=== PATIENT | male | born 1980 | race Hispanic/Latino ===

== ENCOUNTER 2019-05-01 12:59 | Emergency (ER) | payer OTHER ==
[2019-05-01] MEDS ORDERED: KETOROLAC TROMETHAMINE 60 MG/2 ML VIAL ONE (14:15)
== END 2019-05-01 14:28 | disposition home or self-care (01) ==
LOC: EDH 12:59
DX: M72.2 Plantar fascial fibromatosis (principal); J45.909 Unspecified asthma, uncomplicated
CPT/HCPCS: 73630; 96372; 99284; J1885

== ENCOUNTER 2024-04-12 11:01 | Emergency (ER) | payer OTHER ==
[~2024-04-12] VITALS: Ht 175.3 cm; Wt 122.5 kg
--- NOTE | 2024-04-12 11:06 | ERN ---
ED Note History of Present Illness Stated Complaint: DIZZINESS W/CHEST DISCOMFORT Chief Complaint: Dizzy/Light Headed Time Seen by MD: 11:03 Dictation: PATIENT IS A 43-YEAR-OLD MALE WHO WAS DOING CRYSTAL METH AND COCAINE LAST NIGHT AND DRINKING ALCOHOL WHEN HE STATES THIS MORNING HE WOKE UP WITH CHEST DISCOMFORT DIZZINESS AND GENERALIZED BODY WEAKNESS. NO SOB NO NAUSEA VOMITING NO ARM PAIN NO JAW PAIN NO BACK PAIN. NO PRIMARY CARE DOCTOR PATIENT WAS STRONGLY ADVISED THAT DEALERS ARE NOW MIXING COCAINE WITH FENTANYL AND IT IS CAUSING INSTANT , HEART ATTACKS AND STROKES. I ADVISED HIM TO STOP USING ILLEGAL DRUGS AND OF THE ADVERSE CONSEQUENCES. Allergies: Coded Allergies: No Known Drug Allergies (Unverified Allergy, Unknown, 04/12/24) Home Meds Active Scripts Metoprolol Tartrate (Metoprolol Tartrate) 50 Mg Tablet, 50 MG PO DAILY for 30 Days, #30 TAB Prov:JOVANNA THOMPSON SENIOR ASSISTANT MANAGER 04/12/24 Past Medical History Social History: Drugs, ETOH RN Note Reviewed/Agreed w/PFSH: Yes Review of System Dictation CONSTITUTIONAL: NEGATIVE EXCEPT FOR HPI HEAD/FACE: NEGATIVE EXCEPT FOR HPI EENT: NEGATIVE EXCEPT FOR HPI RESPIRATORY: NEGATIVE EXCEPT FOR HPI CHEST PAIN GASTROINTESTINAL/ABDOMINAL: NEGATIVE EXCEPT FOR HPI GENITOURINARY: NEGATIVE EXCEPT FOR HPI MUSCULOSKELETAL: NEGATIVE EXCEPT FOR HPI INTEGUMENTARY: NEGATIVE EXCEPT FOR HPI NEUROLOGICAL/PSYCH: NEGATIVE EXCEPT FOR HPI DIZZINESS HEMATOLOGIC/LYMPHATIC: NEGATIVE EXCEPT FOR HPI ALL SYSTEMS NEGATIVE, EXCEPT NOTED ABOVE. 13 POINT REVIEW OF SYSTEMS ASSESSED AND ALL NEGATIVE EXCEPT FOR ABOVE. Initial Vital Sign VS Vital Signs Date Time Temp Pulse Resp B/P (MAP) Pulse Ox O2 Delivery O2 Flow Rate FiO2 04/12/24 11:03 127 21 108/49 99 Nasal Cannula 2.0 04/12/24 11:21 98.4 28 Physical Exam Dictation VITAL SIGNS REVIEWED GENERAL APPEARANCE: ALERT, ORIENTED X 3, MILD ACUTE DISTRESS, WELL DEVELOPED, NOURISHED. HEAD AND FACE: NON-TRAUMATIC. EYES: PERRL, PINK CONJUNCTIVAS, EYELID NO TRAUMA, ANTERIOR CHAMBER WITH ARCUS SENILIS. EARS: PINNAS INTACT AND NO SIGNS OF TRAUMA OR ERYTHEMA EAR CANALS CLEAR AND NO DISCHARGE TM NO ERYTHEMA NOSE: NO DISCHARGE, NO BLEEDING. OROPHARYNX: MOUTH NORMAL, TONGUE PINK, PHARYNX CLEAR,NO ERYTHEMA, TONSILS NO EXUDATES, NO ABSCESSES NOTED, MUCOUS MEMBRANE MOIST NECK: SUPPLE, NON-TENDER, NO THYROMEGALY, NO MASSES, NO JVD, NO BRUITS BREAST:DEFERRED CHEST:NO TENDERNESS, NO CREPITUS, NO PARADOXICAL MOVEMENT, NO RETRACTIONS LUNGS:CLEAR, WELL-VENTILATED, SYMMETRIC, NO RALES, NO WHEEZING, NO RHONCHI, NO STRIDOR, GOOD BREATH SOUNDS BILATERALLY HEART: REGULAR RATE, REGULAR RHYTHM, NO MURMUR, NO GALLOPS VASCULAR: NO PERIPHERAL EDEMA, ABDOMEN: SOFT, POSITIVE BOWEL SOUNDS, NONDISTENDED, NO GUARDING, NONTENDER, NO REBOUND, NO MASSES NO HEPATOMEGALY, NO SPLENOMEGALY, NO CAMPA'S SIGN, NO HERNIAS. RECTAL: DEFERRED GENITAL: DEFERRED NEUROLOGICAL: NORMAL SPEECH, MOTOR FUNCTION INTACT, SENSORY FUNCTION INTACT MUSCULOSKELETAL: NECK NONTENDER, FULL RANGE OF MOTION, BACK NONTENDER, FULL RANGE OF MOTION, EXTREMITIES: NONTENDER, FULL RANGE OF MOTION SKIN: COLOR PINK, DRY, NO TURGOR, NO RASH, NO LACERATIONS, NO ABRASIONS, NO CONTUSIONS. LYMPHATIC: DEFERRED Results (Laboratory/Radiology) Laboratory/Radiology Laboratory Tests Test 04/12/24 11:17 White Blood Count 11.7 K/uL (4.8-10.8) H Red Blood Count 4.77 MIL/uL (4.50-6.20) Hemoglobin 14.9 g/dL (14.0-18.0) Hematocrit 42.4 % (42-54) Mean Corpuscular Volume 88.9 fL (79-99) Mean Corpuscular Hemoglobin 31.2 pg (27.0-33.0) Mean Corpuscular Hemoglobin Concent 35.1 g/dL (32.0-36.0) Red Cell Distribution Width 12.2 % (11.0-15.5) Platelet Count 322 K/uL (130-400) Mean Platelet Volume 9.3 fL (7.5-10.5) Immature Granulocyte % (Auto) 0.9 % (0-1) Neutrophils (%) (Auto) 81.0 % (40.0-77.0) H Lymphocytes (%) (Auto) 12.5 % (21.0-51.0) L Monocytes (%) (Auto) 5.4 % (3.0-13.0) Eosinophils (%) (Auto) 0.0 % (0.0-8.0) Basophils (%) (Auto) 0.2 % (0.0-5.0) Neutrophils # (Auto) 9.4 K/uL (1.8-7.7) H Lymphocytes # (Auto) 1.5 K/uL (1.0-4.8) Monocytes # (Auto) 0.6 K/uL (0.1-1.0) Eosinophils # (Auto) 0.00 K/uL (0.00-0.70) Basophils # (Auto) 0.02 K/uL (0.00-0.20) Absolute Immature Granulocyte (auto 0.10 K/uL (0-1) Nucleated Red Blood Cells 0.0 % (0.0-0.19) Sodium Level 139 mmol/L (136-145) Potassium Level 4.7 mmol/L (3.5-5.1) Chloride Level 100 mmol/L (101-111) L Carbon Dioxide Level 25 mmol/L (21-32) Blood Urea Nitrogen 11 mg/dL (7-18) Creatinine 0.9 mg/dL (0.5-1.3) Glomerular Filtration Rate Calc 110 mL/min (>90) Random Glucose 146 mg/dL (70-105) H Total Calcium 10.7 mg/dL (8.5-10.1) H Troponin I High Sensitivity 12 ng/L (4-75) Labs Reviewed?: Yes EKG Comment: EKG SINUS TACHYCARDIA/HEART RATE 129/EARLY REPOLARIZATION SEEN IN LEADS V1 V2 ED Course ED Course Orders Procedure Category Date Status Time Cbc With Differential LAB 04/12/24 Complete 11:04 Troponin I High LAB 04/12/24 Complete Sensitivity 11:04 12 Lead Ekg Tracing- EKG 04/12/24 Complete Technical 11:04 Basic Metabolic Panel LAB 04/12/24 Complete 11:04 Ketorolac PHA 04/12/24 Complete Tromethamine 30mg/Ml 12:00 Metoprolol Tartrate PHA 04/12/24 Complete (Lopressor) 12:00 Current Medications Medications (Trade) Dose Ordered Sig/Jay Jay Route PRN Reason Start Time Stop Time Status Last Admin Dose Admin Ketorolac Tromethamine (toRADol) 30 mg ONCE ONCE IVP 04/12/24 12:00 04/12/24 12:01 DC 04/12/24 11:51 Metoprolol Tartrate (loprESSOR) 5 mg ONCE ONCE IV 04/12/24 12:00 04/12/24 12:01 DC 04/12/24 12:21 Vital Signs Date Time Temp Pulse Resp B/P (MAP) Pulse Ox O2 Delivery O2 Flow Rate FiO2 04/12/24 12:29 98.4 98 18 160/81 100 Nasal Cannula* 2.0 N/A 04/12/24 12:21 132 181/90 04/12/24 11:21 98.4 131 18 167/91 100 Nasal Cannula* 2 28 04/12/24 11:03 127 21 108/49 99 Nasal Cannula 2.0 2 40, PATIENT REMAINS HYPERTENSIVE DESPITE METOPROLOL, HEART RATE DOWN TO 98 WE WILL BE DISCHARGED HOME WITH METOPROLOL 50 MG P.O. Q.DAY GIVEN MUCH INFORMATION REGARDING DRUG USE AND COCAINE BEING CUT WITH FENTANYL AND CAUSING INSTANT HEART ATTACKS OR STROKES. IN ADDITION HE IS AWARE HE HAS HYPERGLYCEMIA AND PROBABLE EARLY TYPE 2 DIABETES AND HYPERTENSION AND NEEDS TO SEE A PRIMARY CARE DOCTOR. LIST OF LOCAL HEART Score Response (Comments) Value EKG: Repolarization changes 1 Age: < 45yrs (0) 0 Risk Factors: No known risk factors (0) 0 Initial Troponin: Normal limit (0) 0 Total 1 Medical Decision Making MDM MDM: DIFFERENTIAL DIAGNOSIS: DRUG ABUSE/COCAINE ABUSE/ACS/AMI/ELECTROLYTE IMBALANCE/DEHYDRATION/ANXIETY RATIONALE: TESTS CONSIDERED AND ORDERED SECONDARY TO SHARED DECISION MAKING INCLUDE: EKG/LABS PREVIOUS OUTSIDE RECORDS REVIEWED: OLD ER VISITS. REVIEWED RISK OF COMPLICATION AND/OR MORBIDITY OR MORTALITY OF PATIENT MANAGEMENT: NONE MEDICATIONS-PER MEDICATION RECONCILIATION NEED FOR HOSPITALIZATION: PATIENT DOES NOT MEET CRITERIA FOR HOSPITALIZATION. NO NEED FOR EMERGENCY MAJOR/MINOR SURGERY: NO THERE ARE NO SOCIAL CONCERNS WITH THIS PATIENT. PATIENT IS A POLYDRUG ABUSER INCLUDING COCAINE PRESCRIPTION DRUG MANAGEMENT METOPROLOL 50 PRESCRIPTIONS WILL INCLUDE SYMPTOMATIC CARE PATIENT'S PRIOR EXTERNAL MEDICAL RECORDS FROM OTHER ER VISITS WERE REVIEWED BY ME INDICATED. PRIOR TESTING AND RESULTS FROM PREVIOUS VISITS WERE REVIEWED. PRIOR TESTS WERE TAKEN INTO ACCOUNT WITH MEDICAL DECISION MAKING AND RESOURCE UTILIZATION, INDEPENDENT HISTORIAN/HISTORIANS WERE USED TO OBTAIN COMPLETE MEDICAL HISTORY. I INDEPENDENTLY INTERPRETED THE TEST THAT WERE PERFORMED, RESULTS WERE REVIEWED BY ME AND CONSIDERED FINDINGS ON RADIOLOGY IF ORDERED. MEDICAL MANAGEMENT AND EXAMINATION INTERPRETATION DISCUSSIONS WERE HAD BY ME WITH OTHER QUALIFIED HEALTHCARE PROFESSIONALS INDICATED FOR THE PATIENT'S CARE. DX & DISP Disposition: Discharge Departure Impression: Primary Impression: Atypical chest pain Additional Impressions: Polydrug abuse, continuous, Benign hypertension, Hyperglycemia, Sinus tachycardia by electrocardiogram Condition: Stable Scripts Metoprolol Tartrate (Metoprolol Tartrate) 50 Mg Tablet 50 MG PO DAILY for 30 Days, #30 TAB Prov: JOVANNA THOMPSON NP 04/12/24 Additional Instructions: FOLLOW-UP WITH PRIMARY CARE PROVIDER IN 1 TO 2 DAYS. TAKE MEDICATIONS DIRECTED HERE IN THE EMERGENCY ROOM. OKAY TO CONTINUE HOME MEDICATIONS UNLESS OTHERWISE DISCUSSED DURING YOUR VISIT IN THE EMERGENCY ROOM TODAY. RETURN TO YOUR NEAREST EMERGENCY ROOM IF SYMPTOMS WORSEN OR IF THERE IS NO IMPROVEMENT. CALL 911 IF YOU NEED IMMEDIATE ASSISTANCE. TAKE TYLENOL OR MOTRIN [id number] NEEDED AND IF NO CONTRAINDICATIONS ARE PRESENT. INCREASE ORAL HYDRATION. A WOUND CULTURE OR URINE CULTURE WAS ORDERED HERE IN THE EMERGENCY ROOM DEPARTMENT PLEASE FOLLOW-UP WITH PRIMARY CARE PROVIDER AND ADVISE THEM TO GET REPEAT PORTS FROM OUR FACILITY. IF YOU HAD ANY SONG WRAP/SPLINTS THAT WERE APPLIED HERE, PLEASE DO NOT REMOVE THEM UNTIL YOU SEE YOUR PRIMARY CARE OR SPECIALTY. STOP DRUG ABUSE SPECIFICALLY COCAINE OR RISK INCIDENT HEART ATTACK, STROKE, INSTANT . INCREASE YOUR WATER INTAKE., TAKE METOPROLOL DAILY DIRECTED FOR YOUR BLOOD PRESSURE. FOLLOW UP WITH ONE OF THE DOCTORS ON THE LIST PROVIDED YOU IN THE NEXT 1-2 DAYS FOR MANAGEMENT OF YOUR EARLY DIABETES AND BLOOD PRESSURE Referrals: SELF,REFERRAL (PCP) Time of Disposition: 12:45 I have reviewed the case, and I agree with, Diagnosis and Plan I performed this substantive portion of this visit. I have reviewed and personally made and approve the management plan that is documented in the note by myself or the RICHARD. I acknowledge full responsibility for the patient's management plan. JOVANNA THOMPSON NP Apr 12, 2024 11:06 CHRISTIAN CORNELIUS MD Apr 13, 2024 13:40
[2024-04-12 11:25] LABS: BASOPHILS # (AUTO) 0.02 K/uL (0.00-0.20); BASOPHILS % (AUTO) 0.2 % (0.0-5.0); HEMATOCRIT 42.4 % (42-54); LYMPHOCYTES # (AUTO) 1.5 K/uL (1.0-4.8); LYMPHOCYTES % (AUTO) 12.5 % (21.0-51.0); MEAN CORPUSCULAR HEMOGLOBIN 31.2 pg (27.0-33.0); MEAN CORPUSCULAR HGB CONC 35.1 g/dL (32.0-36.0); MEAN CORPUSCULAR VOLUME 88.9 fL (79-99); MONOCYTES # (AUTO) 0.6 K/uL (0.1-1.0); MONOCYTES % (AUTO) 5.4 % (3.0-13.0); NEUTROPHILS # (AUTO) 9.4 K/uL (1.8-7.7); PLATELET COUNT (AUTO) 322 K/uL (130-400); RED BLOOD CELL COUNT(AUTO) 4.77 MIL/uL (4.50-6.20); RED CELL DISTRIBUTION WIDTH 12.2 % (11.0-15.5); WHITE BLOOD COUNT (AUTO) 11.7 K/uL (4.8-10.8)
[2024-04-12 11:36] LABS: CREATININE 0.9 mg/dL (0.5-1.3); POTASSIUM 4.7 mmol/L (3.5-5.1)
[2024-04-12] MEDS: ketOROlac 30MG VIAL (30MG/ML) IVP ONE (11:51)
[2024-04-12] MEDS: metoPROLOL tartRATE 1 MG/ML 5ML VIAL IV ONE (12:21)
[2024-04-12 12:29] VITALS: BP 160/81; PULSE 98; RESP 18; TEMP 98.4; O2SAT 100
[2024-04-12] MEDS ORDERED: METO50TA18 PO (12:46)
--- NOTE | 2024-04-12 23:38 | EKG ---
[facility] Test Date: 2024-04-12 Test Time: 11:13:18 Pat Name: TANYA OCHOA Department: [facility] Room: Gender: M Production Posting Clerk: [id number] : 1980 Requested By: JOVANNA THOMPSON Order Number: [id number] Reading MD: Perla Dash Measurements Intervals [place] Rate: 129 P: 57 IN: 150 QRS: 34 QRSD: 83 T: 57 QT: 296 QTc: 435 Interpretive Statements Sinus tachycardia Posterior infarct, old No previous ECG available for comparison Electronically Signed On 04-16-2024 08:14:04 SEAM STAY STITCHER by Perla Dash Please click the below link to view image of tracing.
== END 2024-04-12 13:01 | disposition home or self-care (01) ==
LOC: EDH 11:01
DX: R07.89 Other chest pain (principal); I10 Essential (primary) hypertension; R73.9 Hyperglycemia, unspecified; F19.10 Other psychoactive substance abuse, uncomplicated; R00.0 Tachycardia, unspecified; Z79.899 Other long term (current) drug therapy
CPT/HCPCS: 99284; 96374; 96375; 84484; 80048; 85025; 36415; 93005; J3490; J1885

== ENCOUNTER 2024-05-30 15:40 | Emergency (ER) | payer OTHER ==
[~2024-05-30] VITALS: Ht 175.3 cm; Wt 110.2 kg
[~2024-05-30 15:40] MED LIST: METO50TA18 PO
[2024-05-30 16:09] LABS: BASOPHILS # (AUTO) 0.02 K/uL (0.00-0.20); BASOPHILS % (AUTO) 0.3 % (0.0-5.0); EOSINOPHILS # (AUTO) 0.12 K/uL (0.00-0.70); EOSINOPHILS % (AUTO) 1.7 % (0.0-8.0); HEMATOCRIT 45.1 % (42-54); IMMATURE GRANULOCYTE ABSOLUTE 0.03 K/uL (0-1); LYMPHOCYTES # (AUTO) 1.6 K/uL (1.0-4.8); LYMPHOCYTES % (AUTO) 22.1 % (21.0-51.0); MEAN CORPUSCULAR HEMOGLOBIN 30.9 pg (27.0-33.0); MEAN CORPUSCULAR HGB CONC 34.4 g/dL (32.0-36.0); MONOCYTES # (AUTO) 0.6 K/uL (0.1-1.0); MONOCYTES % (AUTO) 8.7 % (3.0-13.0); NEUTROPHILS # (AUTO) 4.8 K/uL (1.8-7.7); NEUTROPHILS % (AUTO) 66.8 % (40.0-77.0); PLATELET COUNT (AUTO) 275 K/uL (130-400); RED BLOOD CELL COUNT(AUTO) 5.01 MIL/uL (4.50-6.20); RED CELL DISTRIBUTION WIDTH 11.8 % (11.0-15.5); WHITE BLOOD COUNT (AUTO) 7.1 K/uL (4.8-10.8)
[2024-05-30 16:17] LABS: CREATININE 0.9 mg/dL (0.5-1.3); POTASSIUM 3.6 mmol/L (3.5-5.1)
[2024-05-30 16:19] LABS: INR 0.97 (0.85-1.15); PROTHROMBIN TIME 10.3 SEC (9.6-11.6)
[2024-05-30 16:20] LABS: PARTIAL THROMBOPLASTIN TIME 25.4 SEC (26.3-35.5)
--- NOTE | 2024-05-30 16:22 | HMCIMG ---
CHEST 1VW CLINICAL HISTORY: hypertension COMPARISON: None TECHNIQUE: Single view of the chest was obtained. FINDINGS: Lungs are clear. The cardiac size and mediastinum are unremarkable. The bony structures are within normal limits. IMPRESSION: No acute cardiopulmonary process identified.
[2024-05-30 16:40] LABS: B-TYPE NATRIURETIC PEPTIDE 18 pg/mL (0-100)
[2024-05-30 16:49] LABS: APPEARANCE,URINE CLEAR (CLEAR); BILIRUBIN,URINE NEGATIVE (NEGATIVE); COLOR,URINE COLORLESS (YELLOW); GLUCOSE, URINE (UA) NEGATIVE (NEGATIVE); KETONES,URINE 20 mg/dL (NEGATIVE); LEUKOCYTE ESTERASE ,URINE NEGATIVE Leu/uL (NEGATIVE); NITRATE,URINE NEGATIVE (NEGATIVE); OCCULT BLOOD,URINE NEGATIVE (NEGATIVE); PROTEIN,URINE NEGATIVE (NEGATIVE); UROBILINOGEN,URINE 0.2 mg/dL (0.2-1.0)
[2024-05-30 16:54] LABS: ADD UA MICROSCOPIC YES; AMPHET/METH SCREEN,URINE NEGATIVE (NEGATIVE); BARBITURATE SCREEN, URINE NEGATIVE (NEGATIVE); BENZODIAZEPINES SCREEN,URINE NEGATIVE (NEGATIVE); CANNABINOID SCREEN,URINE NEGATIVE (NEGATIVE); COCAINE SCREEN,URINE NEGATIVE (NEGATIVE); OPIATE SCREEN,URINE NEGATIVE (NEGATIVE); PHENCYCLIDINE SCREEN,URINE NEGATIVE (NEGATIVE)
--- NOTE | 2024-05-30 16:54 | EKG ---
[facility] Test Date: 2024-05-30 Test Time: 15:55:25 Pat Name: TANYA OCHOA Department: [facility] Room: Gender: M Speech Language Assistant: [id number] : 1980 Requested By: JENNIFER SANDY Order Number: [id number] Reading MD: James Dash Measurements Intervals [place] Rate: 73 P: 36 MO: 163 QRS: 30 QRSD: 89 T: 21 QT: 383 QTc: 422 Interpretive Statements Sinus rhythm Compared to ECG 04/12/2024 11:13:18 Sinus tachycardia no longer present Myocardial infarct finding no longer present Electronically Signed On 06-01-2024 16:03:24 SHORE WORKER by James Dash Please click the below link to view image of tracing.
[2024-05-30 16:56] LABS: RBC,URINE 0-1 /HPF (0-1); WBC,URINE 0-1 /HPF (0-1)
[2024-05-30] MEDS: cloNIDine HCL 0.1 MG TABLET PO STA (17:41)
[2024-05-30] MEDS: 0.9%NACL 1000ML 1,000 ML IV ONE (17:41)
--- NOTE | 2024-05-30 17:41 | ERN ---
General Chief Complaint: Fatigue Stated Complaint: WEAKNESS Time Seen by MD: 15:41 Source: patient History of Present Illness Initial Comments PATIENT IS A 43-YEAR-OLD GENTLEMAN COMING IN TO BE EVALUATED FOR ELEVATED BLOOD PRESSURE. PATIENT STATES HE HAS A HISTORY OF ELEVATED BLOOD PRESSURE AND ANXIETY. HE STATES THAT SOME TIME AGO HE DID COCAINE AND METHAMPHETAMINES AND STARTED HAVING THESE ISSUES AFTER THAT. HE WAS PLACED ON BETA BLOCKERS BUT STATES THAT SOMETIMES HE PRESENTS WITH LOW BLOOD PRESSURE. Allergies: Coded Allergies: No Known Drug Allergies (Unverified Allergy, Unknown, 04/12/24) Home Meds Active Scripts Metoprolol Tartrate (Metoprolol Tartrate) 50 Mg Tablet, 50 MG PO DAILY for 30 Days, #30 TAB Prov:JAYJOVANNA SLASHER TENDER HELPER 04/12/24 Past Medical History Past Medical History: Diabetes-Type II, Heart Disease Medical History Other: OBESE Past Surgical History: None Social History Social History: Drugs, ETOH ROS Dictation CONSTITUTIONAL: NO CHILLS, NO FEVER, NO WEAKNESS, NO DIAPHORESIS, NO MALAISE. HEAD/FACE: NO SIGNS OF TRAUMA. EENT: NO EYE PAIN, NO BLURRED VISION, NO TEARING, NO DOUBLE VISION, NO EAR PAIN, NO EAR DISCHARGE, NO NOSE PAIN, NO NASAL CONGESTION, NO THROAT PAIN, NO THROAT SWELLING, NO MOUTH PAIN. RESPIRATORY: NO COUGH, NO ORTHOPNEA, NO SOB, NO STRIDOR, NO WHEEZING. CARDIOVASCULAR: NO CHEST PAIN, NO EDEMA, NO PALPITATIONS, NO SYNCOPE. GASTROINTESTINAL/ABDOMINAL: NO ABDOMINAL PAIN, NO CONSTIPATION, NO DIARRHEA, NO NAUSEA, NO VOMITING. GENITOURINARY: NO ABNORMAL DISCHARGE, NO DYSURIA, NO FREQUENT URINATION, NO HEMATURIA. NO COMPLAINTS OF PAIN IN THE GENITALS. MUSCULOSKELETAL: NO BACK PAIN, NO GOUT, NO JOINT PAIN, NO JOINT SWELLING, NO MUSCLE PAIN, NO MUSCLE STIFFNESS, NO NECK PAIN. INTEGUMENTARY: NO CHANGE IN COLOR, NO CHANGE IN HAIR/NAILS, NO DRYNESS, NO LESION, NO LUMPS, NO RASH. NEUROLOGICAL/PSYCH: NO ANXIETY, NOT DEPRESSED, NO EMOTIONAL PROBLEM, NO HEADACHE, NO NUMBNESS, NO PRE-EXISTING DEFICIT, NO HISTORY OF SEIZURES, NO TREMORS, NO WEAKNESS. HEMATOLOGIC/LYMPHATIC: NOT ANEMIC, NO HISTORY OF BLOOD CLOTS, NO APPARENT BLEEDING, NO BRUISING, GLANDS NOT SWOLLEN. ALL SYSTEMS NEGATIVE, EXCEPT NOTED. Physical Exam Physical Exam Dictation VITAL SIGNS: REVIEWED. GENERAL APPEARANCE: ALERT, ORIENTED X3, NO ACUTE DISTRESS, OBESE. HEAD AND FACE: NON-TRAUMATIC. EYES: PERRL, PINK CONJUNCTIVAS, EYELID NO TRAUMA, ANTERIOR CHAMBER CLEAR. EARS: PINNAS INTACT AND NO SIGNS OF TRAUMA OR ERYTHEMA. EAR CANALS CLEAR AND NO DISCHARGE. TMS NO ERYTHEMA. NOSE: NO DISCHARGE, NO BLEEDING. OROPHARYNX: MOUTH NORMAL, TEETH NO CARIES, TONGUE PINK. PHARYNX CLEAR, NO ERYTHEMA. TONSILS NO EXUDATES, NO ABSCESSES NOTED. MUCOUS MEMBRANE MOIST. NECK: SUPPLE, NON-TENDER, NO THYROMEGALY, NO MASSES, NO JVD, NO BRUITS. BREAST: DEFERRED. CHEST: NO TENDERNESS, NO CREPITUS, NO PARADOXICAL MOVEMENT, NO RETRACTIONS. LUNGS: CLEAR, WELL-VENTILATED, SYMMETRIC, NO RALES, NO WHEEZING, NO RHONCHI, NO STRIDOR, GOOD BREATH SOUNDS BILATERALLY. HEART: REGULAR RATE, REGULAR RHYTHM, NO MURMUR, NO GALLOPS. VASCULAR: NO PERIPHERAL EDEMA. ABDOMEN: SOFT, POSITIVE BOWEL SOUNDS, NONDISTENDED, NO GUARDING, NONTENDER, NO REBOUND, NO MASSES NO HEPATOMEGALY, NO SPLENOMEGALY, NO CAMPA'S SIGN, NO HERNIAS. RECTAL: DEFERRED. GENITAL: DEFERRED. NEUROLOGICAL: NORMAL SPEECH, GROSS MOTOR FUNCTION INTACT, GROSS SENSORY FUNCTION INTACT. MUSCULOSKELETAL: NECK NONTENDER, FULL RANGE OF MOTION, BACK NONTENDER, FULL RANGE OF MOTION. EXTREMITIES: NONTENDER, FULL RANGE OF MOTION. SKIN: COLOR PINK, DRY, NO TURGOR, NO RASH, NO LACERATIONS, NO ABRASIONS, NO CONTUSIONS. LYMPHATICS: DEFERRED. Results Laboratory and Microbiology Lab and Micro Result Laboratory Tests Test 05/30/24 15:59 05/30/24 16:40 White Blood Count 7.1 K/uL (4.8-10.8) Red Blood Count 5.01 MIL/uL (4.50-6.20) Hemoglobin 15.5 g/dL (14.0-18.0) Hematocrit 45.1 % (42-54) Mean Corpuscular Volume 90.0 fL (79-99) Mean Corpuscular Hemoglobin 30.9 pg (27.0-33.0) Mean Corpuscular Hemoglobin Concent 34.4 g/dL (32.0-36.0) Red Cell Distribution Width 11.8 % (11.0-15.5) Platelet Count 275 K/uL (130-400) Mean Platelet Volume 9.3 fL (7.5-10.5) Immature Granulocyte % (Auto) 0.4 % (0-1) Neutrophils (%) (Auto) 66.8 % (40.0-77.0) Lymphocytes (%) (Auto) 22.1 % (21.0-51.0) Monocytes (%) (Auto) 8.7 % (3.0-13.0) Eosinophils (%) (Auto) 1.7 % (0.0-8.0) Basophils (%) (Auto) 0.3 % (0.0-5.0) Neutrophils # (Auto) 4.8 K/uL (1.8-7.7) Lymphocytes # (Auto) 1.6 K/uL (1.0-4.8) Monocytes # (Auto) 0.6 K/uL (0.1-1.0) Eosinophils # (Auto) 0.12 K/uL (0.00-0.70) Basophils # (Auto) 0.02 K/uL (0.00-0.20) Absolute Immature Granulocyte (auto 0.03 K/uL (0-1) Nucleated Red Blood Cells 0.0 % (0.0-0.19) Prothrombin Time 10.3 SEC (9.6-11.6) Prothromb Time International Ratio 0.97 (0.85-1.15) Activated Partial Thromboplast Time 25.4 SEC (26.3-35.5) L Sodium Level 138 mmol/L (136-145) Potassium Level 3.6 mmol/L (3.5-5.1) Chloride Level 102 mmol/L (101-111) Carbon Dioxide Level 30 mmol/L (21-32) Blood Urea Nitrogen 9 mg/dL (7-18) Creatinine 0.9 mg/dL (0.5-1.3) Glomerular Filtration Rate Calc 110 mL/min (>90) Random Glucose 105 mg/dL (70-105) Total Calcium 8.9 mg/dL (8.5-10.1) Magnesium Level 2.00 mg/dL (1.80-2.40) Total Creatine Kinase 51 U/L (21-232) Troponin I High Sensitivity 5 ng/L (4-75) B-Type Natriuretic Peptide 18 pg/mL (0-100) Urine Color COLORLESS (YELLOW) Urine Appearance CLEAR (CLEAR) Urine pH 5.0 (5.0-8.0) Urine Specific Sherrill 1.006 (1.001-1.031) Urine Protein NEGATIVE mg/dL (NEGATIVE) Urine Glucose (UA) NEGATIVE mg/dL (NEGATIVE) Urine Ketones 20 mg/dL (NEGATIVE) H Urine Occult Blood NEGATIVE (NEGATIVE) Urine Nitrate NEGATIVE (NEGATIVE) Urine Bilirubin NEGATIVE mg/dL (NEGATIVE) Urine Urobilinogen 0.2 mg/dL (0.2-1.0) Urine Leukocyte Esterase NEGATIVE Dennis/uL Urine RBC 0-1 /HPF (0-1) Urine WBC 0-1 /HPF (0-1) Urine Bacteria None /HPF (None Seen) Urine Opiates Screen NEGATIVE (NEGATIVE) Urine Barbiturates Screen NEGATIVE (NEGATIVE) Urine Phencyclidine Screen NEGATIVE (NEGATIVE) Urine Amphetamines Screen NEGATIVE (NEGATIVE) Urine Benzodiazepines Screen NEGATIVE (NEGATIVE) Urine Cocaine Screen NEGATIVE (NEGATIVE) Urine Marijuana (THC) Screen NEGATIVE (NEGATIVE) Labs Reviewed?: Yes EKG/XRAY/US/CT/MRI EKG Comment 05/30/2024 TIME 3:55 P.M. VENTRICULAR RATE [address] SIN[address] WAVE ELEVATION OR DEPRESSION MDM MDM: DIFFERENTIAL DIAGNOSIS: ANXIETY ATTACK, HYPERTENSION, PATIENT IS A 43-YEAR-OLD GENTLEMAN COMING IN TO BE EVALUATED FOR ELEVATED BLOOD PRESSURE. ON PHYSICAL EXAM PATIENT PATIENT WAS STABLE. PATIENT STATES THAT HE DOES HAVE A HISTORY OF REPEATED ELEVATED PULSE AND WAS ONCE DIAGNOSED WITH ANXIETY BUT STATES HE CAN NOT TOLERATE THE VISTARIL. PATIENT WILL BE DISCHARGED IN STABLE CONDITION WITH A DIAGNOSIS OF ANXIETY. ALSO ADVISED HIM APPROPRIATE FOLLOW UP WITH PCP AND PATIENT STATES THAT HE WANTS TO FOLLOW UP WITH DR. MIMS WITH THE SAFETY OFFICER. ED Course Orders Procedure Category Date Status Time Cbc With Differential LAB 05/30/24 Complete 15:47 Prothrombin Time With LAB 05/30/24 Complete INR 15:47 B-Type Natriuretic LAB 05/30/24 Complete Peptide 15:47 Chest 1vw RAD 05/30/24 Resulted 15:47 12 Lead Ekg Tracing- EKG 05/30/24 Complete Technical 15:47 0.9%Nacl 1000ml (Ns PHA 05/30/24 Complete 1000ml) 16:00 Magnesium LAB 05/30/24 Complete 15:47 Creatine Kinase, Total LAB 05/30/24 Complete 15:47 Troponin I High LAB 05/30/24 Complete Sensitivity 15:47 Urinalysis Profile LAB 05/30/24 Complete 15:47 Partial LAB 05/30/24 Complete Thromboplastin Time 15:47 Basic Metabolic Panel LAB 05/30/24 Complete 15:47 Drug Screen Urine LAB 05/30/24 Complete 15:47 Clonidine Hcl 0.1 Mg PHA 05/30/24 Complete Tablet (Catapres 0. 17:13 Current Medications Medications (Trade) Dose Ordered Sig/Jay Jay Route PRN Reason Start Time Stop Time Status Last Admin Dose Admin Clonidine HCl (CATApres 0.1 mg TAB) 0.1 mg ONCE STAT PO 05/30/24 17:13 05/30/24 17:18 DC 05/30/24 17:41 Sodium Chloride 1,000 ml @ 0 mls/hr ONCE ONCE IV 05/30/24 16:00 05/30/24 16:01 DC 05/30/24 17:41 Vital Signs Date Time Temp Pulse Resp B/P (MAP) Pulse Ox O2 Delivery O2 Flow Rate FiO2 05/30/24 17:41 71 146/100 05/30/24 16:33 98.1 79 16 155/101 100 Room Air* 0 21 05/30/24 15:41 98.1 80 15 137/84 98 Room Air 0 DX & DISP Disposition: Discharge Departure Impression: Primary Impression: Anxiety Condition: Stable Scripts Buspirone HCl (Buspar) 15 Mg Tab 1 TAB PO BID for 7 Days, #14 TAB 0 Refills Prov: JENNIFER SANDY MD 05/30/24 Additional Instructions: YOU HAVE BEEN REVIEWED IN THE EMERGENCY DEPARTMENT AT [facility] AFTER PRESENTING WITH CHEST PAIN. AFTER CONSIDERING YOUR HISTORY, YOUR RISK FACTORS, YOUR EKG AND YOUR BLOOD TEST TROPONINS, HAVE BEEN FOUND TO BE AT VERY LOW RISK LESS THAN (1 IN 100) OF HAVING A MAJOR ADVERSE CARDIAC EVENT (LIKE HEART ATTACK) IN THE NEAR FUTURE. IN THE " LOW RISK" GROUP, THE RISKS OF DOING FURTHER TESTS AND TREATMENT THE INPATIENT OUTWEIGHS THE BENEFITS. IN MANY PATIENTS IN THE LOW RISK GROUP FOR THE TEST OF ANY SORT OR UNNECESSARY, HOWEVER HE SHOULD DISCUSS THIS FURTHER WITH HIS GENERAL PRACTITIONER WHO WILL UNDERSTAND THE MEDICAL AND PERSONAL BACKGROUNDS BETTER. BECAUSE WE HAVE NEVER DECLARED YOU" NO RISK" WE WOULD SUGGEST. 1 RETURNING FOR MEDICAL REVIEW IF YOU HAVE FURTHER EPISODES OF CHEST PAIN/ARM PAIN OR OTHER CONCERNING SYMPTOMS LIKE DIZZINESS, COLLAPSE, PALPITATIONS OR SHORTNESS OF BREATH. 2. FOLLOWING UP WITH YOUR LOCAL DOCTOR WHO WILL CONSIDER THE NEED FOR FURTHER TESTING AND WILL ALSO ENSURE THAT ANY MODIFIABLE RISK FACTORS YOU MAY HAVE FOR HEART DISEASE ARE OPTIMALLY MANAGED. PATIENT WILL BE DISCHARGED IN STABLE CONDITION AT THE MOMENT DISCHARGE PATIENT STATES , NO CHEST PAIN Referrals: RAHEL LEON (PCP) NOMI PARKER MD Time of Disposition: 17:50 JENNIFER SANDY MD May 30, 2024 17:41
[2024-05-30] MEDS ORDERED: BUSP15 PO (17:51)
[2024-05-30 21:44] VITALS: BP 116/77; PULSE 61; RESP 12; TEMP 98.1; O2SAT 99
== END 2024-05-30 21:52 | disposition home or self-care (01) ==
LOC: EDH 15:40
DX: F41.9 Anxiety disorder, unspecified (principal); E11.9 Type 2 diabetes mellitus without complications; I10 Essential (primary) hypertension; Z79.899 Other long term (current) drug therapy
CPT/HCPCS: 99285; 96360; 96361; 71045; 82550; 83735; 84484; 80048; 83880; 80305; 85025; 85610; 85730; 36415; 93005; 81001; J7030

== ENCOUNTER 2024-06-25 00:53 | Emergency (ER) | payer BC, OTHER ==
[~2024-06-25] VITALS: Ht 175.3 cm; Wt 106.6 kg
[~2024-06-25 00:53] MED LIST changes: +BUSP15 PO
--- NOTE | 2024-06-25 01:26 | ERN ---
ED Note History of Present Illness Stated Complaint: DIZZINESS Chief Complaint: Dizzy/Light Headed Time Seen by MD: 01:04 Dictation: This is a 43-year-old male who presented to the emergency room with complaints of feeling dizzy. Been Googling on the Internet and found that he has been eating foods filled with potassium and he also has been drinking juices with potassium. He got concerned and came into the ER for further evaluation No nausea vomitings no fevers chills or rigors Temperature 98.7 pulse 65 respirations 20 blood pressure 156/97 with a pulse oximetry of 99% on room air Allergies: Coded Allergies: No Known Drug Allergies (Unverified Allergy, Unknown, 04/12/24) Home Meds Active Scripts Buspirone HCl (Buspar) 15 Mg Tab, 1 TAB PO BID for 7 Days, #14 TAB 0 Refills Prov:JENNIFER SANDY MD 05/30/24 Metoprolol Tartrate (Metoprolol Tartrate) 50 Mg Tablet, 50 MG PO DAILY for 30 Days, #30 TAB Prov:JOVANNA THOMPSON NP 04/12/24 Past Medical History Past Medical History: Diabetes-Type II, Hypertension Additional Past Medical Hx: OBESE Surgical History: None Family History: Negative Social History: Drugs, ETOH Review of System Dictation Constitutional: Negative for fever,chills, and weight loss Eyes: Negative for injury, pain,redness, and discharge ENT: Negative for injury,pain or swelling Cardiovascular: Negative for chest pain, palpitations, and edema Respiratory: Negative for shortness of breath, cough, and wheezing, Abdomen/GI: Negative for abdominal pain, nausea, vomiting, diarrhea, and constipation Back: Negative for injury and pain : Negative for injury, bleeding and discharge MS/Extremity: Negative for injury and deformity Skin: Negative for rash, and discoloration Neuro: Negative for headache, weakness, numbness, tingling, and seizure Psych: Negative for suicide ideation, homicidal ideation, and hallucinations Initial Vital Sign VS Vital Signs Date Time Temp Pulse Resp B/P (MAP) Pulse Ox O2 Delivery O2 Flow Rate FiO2 06/25/24 00:55 98.8 65 20 156/97 99 Room Air 0 06/25/24 04:00 21 Physical Exam Dictation General: awake, alert, NAD Head/Face: Normocephalic, atraumatic Eyes: PERRL, EOMI, vision at baseline ENT: oral cavity clear, TMs clear, no signs of infection Neck: Trachea midline, supple, no nuchal rigidity Cardiovascular: RRR, normal S1/S2, No MRGs, no JVD Respiratory: CTAB, no respiratory distress, No rales or wheezes Abdomen: Soft, non-tender, non-distended, normal bowel sounds, no guarding or rebound. Skin: Warm, dry, normal turgor, no rash MS/Extremity: Pulses equal, no cyanosis, neurovascular intact, FROM Neuro: COAx4, GCS 15, strength 5/5, CN 2-12 intact, normal cerebellar exam, normal gait, Psych: Normal behavior, mood, and affect normal Extremities-trace edema without any palpable cords, Homans sign is negative Results (Laboratory/Radiology) Laboratory/Radiology Laboratory Tests Test 06/25/24 01:33 White Blood Count 8.6 K/uL (4.8-10.8) Red Blood Count 4.66 MIL/uL (4.50-6.20) Hemoglobin 14.6 g/dL (14.0-18.0) Hematocrit 42.6 % (42-54) Mean Corpuscular Volume 91.4 fL (79-99) Mean Corpuscular Hemoglobin 31.3 pg (27.0-33.0) Mean Corpuscular Hemoglobin Concent 34.3 g/dL (32.0-36.0) Red Cell Distribution Width 11.8 % (11.0-15.5) Platelet Count 293 K/uL (130-400) Mean Platelet Volume 9.3 fL (7.5-10.5) Immature Granulocyte % (Auto) 0.2 % (0-1) Neutrophils (%) (Auto) 64.2 % (40.0-77.0) Lymphocytes (%) (Auto) 26.7 % (21.0-51.0) Monocytes (%) (Auto) 7.8 % (3.0-13.0) Eosinophils (%) (Auto) 0.9 % (0.0-8.0) Basophils (%) (Auto) 0.2 % (0.0-5.0) Neutrophils # (Auto) 5.5 K/uL (1.8-7.7) Lymphocytes # (Auto) 2.3 K/uL (1.0-4.8) Monocytes # (Auto) 0.7 K/uL (0.1-1.0) Eosinophils # (Auto) 0.08 K/uL (0.00-0.70) Basophils # (Auto) 0.02 K/uL (0.00-0.20) Absolute Immature Granulocyte (auto 0.02 K/uL (0-1) Nucleated Red Blood Cells 0.0 % (0.0-0.19) Sodium Level 134 mmol/L (136-145) L Potassium Level 3.6 mmol/L (3.5-5.1) Chloride Level 98 mmol/L (101-111) L Carbon Dioxide Level 33 mmol/L (21-32) H Blood Urea Nitrogen 10 mg/dL (7-18) Creatinine 0.8 mg/dL (0.5-1.3) Glomerular Filtration Rate Calc 114 mL/min (>90) Random Glucose 97 mg/dL (70-105) Total Calcium 9.3 mg/dL (8.5-10.1) Labs Reviewed?: Yes EKG Comment: Twelve lead EKG shows a normal sinus rhythm with no acute STT wave changes. ED Course ED Course Orders Procedure Category Date Status Time Cbc With Differential LAB 06/25/24 Complete 01: Basic Metabolic Panel LAB 06/25/24 Complete : 12 Lead Ekg Tracing- EKG 06/25/24 Resulted Technical 01: Vital Signs Date Time Temp Pulse Resp B/P (MAP) Pulse Ox O2 Delivery O2 Flow Rate FiO2 06/25/24 04:00 98.2 64 16 146/88 99 Room Air* 0 21 06/25/24 00:55 98.8 65 20 156/97 99 Room Air 0 We will perform diagnostic labs, and administer medications according to the patient's complaint. Once the results are available, will review and personally interpreted the labs to rule out any acute life-threatening emergency the trach require immediate intervention and treatment. I will then re-evaluate the patient after treatment and diagnostic exams have return to determine whether the patient requires any further testing, can safely be discharged home or need further admission to hospital for additional treatment and evaluation. Medical Decision Making MDM MDM: Differential diagnosis: Rationale: Tests considered and ordered secondary to shared decision making include: Previous outside records reviewed: Old ER visits. Risk of complication and/or morbidity or mortality of patient management: None Medications-Per medication reconciliation Need for hospitalization: Patient does not meet criteria for hospitalization. Need for emergency major/minor surgery: No There are no social concerns with this patient. Prescription drug management Prescriptions will include symptomatic care Patient's prior external medical records from other ER visits were reviewed by me as indicated. Prior testing and results from previous visits were reviewed. Prior tests were taken into account with medical decision making and resource utilization, independent historian/historians were used to obtain complete me dical history. I independently interpreted the test that were performed, results were reviewed by me and considered findings on radiology if ordered. Medical management and examination interpretation discussions were had by me with other qualified healthcare professionals as indicated for the patient's care. Problem List Problem List: (1) Dizziness (2) Anxiety (3) Polydrug abuse, continuous DX & DISP Disposition: Discharge Departure Impression: Primary Impression: Dizziness Additional Impressions: Anxiety, Polydrug abuse, continuous Condition: Stable Additional Instructions: Patient and the caregiver have been informed of all the diagnostic tests and the imaging conducted during the today's visit to the emergency room and has verbalized understanding of the results I have personally reviewed and interpre raquel all diagnostic exams performed here in the ER today as well as the vital signs documented by the nursing staff. The patient is now being discharged to home and should follow up with the primary care physician or the specialist as directed by the ER staff. Follow-up with primary care provider in 1 to 2 days. Take medications as directed here in the emergency room. Okay to continue home medications unless otherwise discussed during your visit in the emergency room today. Return to your nearest emergency room if symptoms worsen or if there is no improvement. Call 911 if you need immediate assistance. Take Tylenol or Motrin o [id number] as needed and if no contraindications are present. Increase oral hydration. A wound culture or urine culture was ordered here in the emergency room department please follow-up with primary care provider and advise them to get repeat ports from our facility. If you had any Morales wrap/splints that were applied here, please do not remove them until you see your primary care or specialty. Referrals: JOCELYN GRANADO (PCP) BALA GUERRERO MD Jun 25, 2024 01:26
[2024-06-25 01:50] LABS: BASOPHILS # (AUTO) 0.02 K/uL (0.00-0.20); BASOPHILS % (AUTO) 0.2 % (0.0-5.0); EOSINOPHILS # (AUTO) 0.08 K/uL (0.00-0.70); EOSINOPHILS % (AUTO) 0.9 % (0.0-8.0); HEMATOCRIT 42.6 % (42-54); IMMATURE GRANULOCYTE ABSOLUTE 0.02 K/uL (0-1); LYMPHOCYTES # (AUTO) 2.3 K/uL (1.0-4.8); LYMPHOCYTES % (AUTO) 26.7 % (21.0-51.0); MEAN CORPUSCULAR HEMOGLOBIN 31.3 pg (27.0-33.0); MEAN CORPUSCULAR HGB CONC 34.3 g/dL (32.0-36.0); MEAN CORPUSCULAR VOLUME 91.4 fL (79-99); MONOCYTES # (AUTO) 0.7 K/uL (0.1-1.0); MONOCYTES % (AUTO) 7.8 % (3.0-13.0); NEUTROPHILS # (AUTO) 5.5 K/uL (1.8-7.7); NEUTROPHILS % (AUTO) 64.2 % (40.0-77.0); PLATELET COUNT (AUTO) 293 K/uL (130-400); RED BLOOD CELL COUNT(AUTO) 4.66 MIL/uL (4.50-6.20); RED CELL DISTRIBUTION WIDTH 11.8 % (11.0-15.5); WHITE BLOOD COUNT (AUTO) 8.6 K/uL (4.8-10.8)
[2024-06-25 01:59] LABS: CREATININE 0.8 mg/dL (0.5-1.3); POTASSIUM 3.6 mmol/L (3.5-5.1)
[2024-06-25 04:00] VITALS: BP 146/88; PULSE 64; RESP 16; TEMP 98.2; O2SAT 99
--- NOTE | 2024-06-25 06:30 | EKG ---
[facility] Test Date: 2024-06-25 Test Time: 03:04:54 Pat Name: TANYA OCHOA Department: ED Room: Gender: Obstetrical Tech: [id number] : 1980 Requested By: BALA GUERRERO Order Number: [id number] Reading MD: James Dash Measurements Intervals [place] Rate: 54 P: -12 OR: 182 QRS: 41 QRSD: 98 T: 33 QT: 426 QTc: 405 Interpretive Statements Sinus rhythm Compared to ECG 05/30/2024 15:55:25 No significant changes Electronically Signed On 06-25-2024 10:31:30 CDT by James Dash Please click the below link to view image of tracing.
== END 2024-06-25 04:03 | disposition home or self-care (01) ==
LOC: EDH 00:53
DX: R42 Dizziness and giddiness (principal); F41.9 Anxiety disorder, unspecified; F19.10 Other psychoactive substance abuse, uncomplicated; E11.9 Type 2 diabetes mellitus without complications; I10 Essential (primary) hypertension; Z79.899 Other long term (current) drug therapy
CPT/HCPCS: 36415; 80048; 85025; 93005; 99284